=== PATIENT | male | born 1955 | race Two or more races ===

== ENCOUNTER → 2021-05-22 15:22 | Outpatient (CLI) | payer OTHER | END | disposition home or self-care (01) | LOC: LAB 15:22 | PROVIDERS: ATTEND Urology | DX: R97.20 Elevated prostate specific antigen [PSA] (principal) ==

== ENCOUNTER 2021-05-30 07:09 | Outpatient (CLI) | payer OTHER | END 2021-05-30 07:24 | disposition home or self-care (01) | LOC: SONOGRAMA 07:09 | PROVIDERS: ATTEND Urology | DX: R97.20 Elevated prostate specific antigen [PSA] (principal) ==

== ENCOUNTER → 2021-07-04 07:40 | Outpatient (CLI) | payer OTHER | END | disposition home or self-care (01) | LOC: NUCLEAR 07:30 | PROVIDERS: ATTEND Urology | DX: C61 Malignant neoplasm of prostate (principal) ==

== ENCOUNTER 2021-07-04 09:12 | Outpatient (CLI) | payer OTHER | END 2021-07-04 09:56 | disposition home or self-care (01) | LOC: LAB 09:12 | PROVIDERS: ATTEND Radiology Diagnostic Radiology | DX: R97.20 Elevated prostate specific antigen [PSA] (principal) ==

== ENCOUNTER 2021-07-10 07:53 | Outpatient (CLI) | payer OTHER | END 2021-07-10 07:55 | disposition home or self-care (01) | LOC: TOM 07:53 | PROVIDERS: ATTEND Urology | DX: R97.20 Elevated prostate specific antigen [PSA] (principal); C61 Malignant neoplasm of prostate | CPT/HCPCS: 74178; Q9965 ==

== ENCOUNTER 2021-07-16 07:12 | Outpatient (CLI) | payer OTHER | END 2021-07-16 07:13 | disposition home or self-care (01) | LOC: NUCLEAR 07:12 | PROVIDERS: ATTEND Urology | DX: I25.10 Atherosclerotic heart disease of native coronary artery without angina pectoris (principal) | CPT/HCPCS: 78452; A9500 ==